=== PATIENT | female | born 1945 | race Caucasian/White ===

== ENCOUNTER 2020-04-24 06:37 | Emergency (ER) | payer OTHER, MEDICARE ==
[~2020-04-24] VITALS: Ht 160 cm; Wt 77.1 kg
[2020-04-24] MEDS ORDERED: HYDROMORPHONE HC2 MG PO (09:00)
[2020-04-24] MEDS ORDERED: ONDANSETRON ODT8 MG PO (09:00)
== END 2020-04-24 11:29 | disposition home or self-care (01) ==
LOC: ED 06:37
DX: S52.501A Unspecified fracture of the lower end of right radius, initial encounter for closed fracture (principal); W01.198A Fall on same level from slipping, tripping and stumbling with subsequent striking against other object, initial encounter; I10 Essential (primary) hypertension; Z88.4 Allergy status to anesthetic agent
CPT/HCPCS: 29125; 64450; 73030; 73110; 99283-25